=== PATIENT | female | born 1970 | race Caucasian/White ===

== ENCOUNTER 2022-12-06 09:08 | Emergency (ER) | payer OTHER ==
[2022-12-06 09:22] VITALS: BP 150/86; PULSE 97; RESP 18; TEMP 98.9; BMI 27.4
[2022-12-06] MEDS ORDERED: ACETAMINOPHEN 1000 MG/100 ML BAG IVPB ONE (09:28)
[2022-12-06] MEDS ORDERED: SODIUM CHLORIDE 1,000 ML IV ONE ×2 (09:28→12:02)
[2022-12-06] MEDS ORDERED: ONDANSETRON 4 MG/2 ML VIAL IVPUSH ONE (09:28)
[2022-12-06] MEDS ORDERED: FAMOTIDINE 20 MG/50 ML IVPB 20 MG/50 ML MG IVPB ONE (09:44)
[2022-12-06] MEDS ORDERED: ONDANSETRON 4 MG/2 ML VIAL ONE (09:44)
[2022-12-06] MEDS ORDERED: ACETAMINOPHEN INJECTION 100 ML IVPB ONE (09:45)
[2022-12-06 10:37] LABS: HEMATOCRIT 48.3 % (32.4-45.2); HEMOGLOBIN 16.6 G/dL (10.7-15.3); MCH 27.7 pg (25.7-33.7); MCHC 34.3 g/dl (32.0-36.0); MEAN CELL VOLUME 80.6 fl (80-96); PLATELET COUNT 239.4 10^3/uL (134-434); RBC 5.99 10^6/uL (3.60-5.2); RDW 14.9 % (11.6-15.6); WHITE BLOOD COUNT 8.1 10^3/uL (4.0-10.8)
[2022-12-06 10:40] LABS: HCG,QUALITATIVE URINE Negative
[2022-12-06 10:46] LABS: PLATELET ESTIMATE ADEQUATE
[2022-12-06 10:49] LABS: ALBUMIN 4.8 g/dl (3.4-5.0); BILIRUBIN,TOTAL 1.3 mg/dl (0.2-1); CALCIUM 9.7 mg/dl (8.5-10); CREATININE 0.7 mg/dl (0.55-1.3); TOT PROT 8.8 g/dl (6.4-8.2)
[2022-12-06 10:55] LABS: EPITHELIAL CELLS RARE /hpf
== END 2022-12-06 14:53 | disposition home or self-care (01) ==
LOC: FER 09:08
PROC: 3E0333Z Introduction of Anti-inflammatory into Peripheral Vein, Percutaneous Approach (ICD-10-PCS; principal; 2022-12-06)
PROC: 3E033GC Introduction of Other Therapeutic Substance into Peripheral Vein, Percutaneous Approach (ICD-10-PCS; 2022-12-06)
PROC: 3E033GC Introduction of Other Therapeutic Substance into Peripheral Vein, Percutaneous Approach (ICD-10-PCS; 2022-12-06)
PROC: 3E0337Z Introduction of Electrolytic and Water Balance Substance into Peripheral Vein, Percutaneous Approach (ICD-10-PCS; 2022-12-06)
PROC: 3E0337Z Introduction of Electrolytic and Water Balance Substance into Peripheral Vein, Percutaneous Approach (ICD-10-PCS; 2022-12-06)
DX: R73.9 Hyperglycemia, unspecified (principal); R11.2 Nausea with vomiting, unspecified
CPT/HCPCS: 0241U-QW; 36415; 80053; 81003; 81015; 82010; 82962; 83690; 84484; 84703; 85027; 93005; 99284-25